=== PATIENT | female | born 1955 | race Caucasian/White ===

== ENCOUNTER 2016-09-19 01:35 | Emergency (ER) | payer OTHER ==
[~2016-09-19] VITALS: Ht 157.5 cm; Wt 54.4 kg
[~2016-09-19 01:35] MED LIST: ASPI81CT89 PO; HUM SUBQ; LANTUS SUBQ; SYN.1 PO
[2016-09-19 01:44] VITALS: BP 116/70
--- NOTE | 2016-09-19 01:55 | NUR ---
TO ER OF1
--- NOTE | 2016-09-19 02:01 | NUR ---
Patient being evaluated by physician.
[2016-09-19] MEDS ORDERED: NACL 0.9% 1,000 ML IV ONE (02:05)
--- NOTE | 2016-09-19 02:08 | NUR ---
MOVED TO ER BED 8
--- NOTE | 2016-09-19 02:10 | NUR ---
PT ARRIVED BACK FROM [place] VIA AIRPLANE TONIGHT C/O BILAT LEG PAIN. BLOOD SUGAR 433 PT DENIES N/V/D; SKIN IS PINK/WARM/DRY; AAOX4 WITH EVEN AND STEADY GAIT; LUNGS CLEAR BL; HR EVEN AND REGULAR; PT DENIES ANY FEVER, CP, SOB, OR COUGH AT THIS TIME; PATIENT STATES PAIN OF 10/10 AT THIS TIME; VSS; PATIENT POSITIONED FOR COMFORT; HOB ELEVATED; BEDRAILS UP X2; BED DOWN. ER MD MADE AWARE OF PT STATUS.
[2016-09-19 02:18] LABS: BASOPHILS # (AUTO) 0.2 K/uL (0.00-0.22); BASOPHILS % (AUTO) 2.3 % (0.0-2.0); EOSINOPHILS # (AUTO) 0.1 K/uL (0-0.4); EOSINOPHILS % (AUTO) 1.6 % (0.0-4.0); HEMATOCRIT 43.8 % (36-48); HEMOGLOBIN 14.2 g/dL (12.0-16.0); LYMPHOCYTES # (AUTO) 1.4 K/uL (2.5-16.5); LYMPHOCYTES % (AUTO) 16.9 % (20.5-51.1); MEAN CORPUSCULAR HEMOGLOBIN 29 pg (27-31); MEAN CORPUSCULAR HGB CONC 33 g/dL (33-37); MEAN CORPUSCULAR VOLUME 88 fL (80-94); MONOCYTES # (AUTO) 0.1 K/uL (0.8-1.0); MONOCYTES % (AUTO) 1.7 % (1.7-9.3); NEUTROPHILS # (AUTO) 6.4 K/uL (1.8-7.7); NEUTROPHILS % (AUTO) 77.5 % (42.2-75.2); PLATELET COUNT (AUTO) 289 K/uL (140-450); RED BLOOD CELL COUNT(AUTO) 4.97 MIL/uL (4.20-5.40); RED CELL DISTRIBUTION WIDTH 12.6 % (11.6-13.7); WHITE BLOOD COUNT (AUTO) 8.2 K/uL (4.8-10.8)
[2016-09-19 02:33] LABS: ALBUMIN 3.7 g/dL (3.4-5.0); ANION GAP 14.7 (8-16); CALCIUM 9.5 mg/dL (8.5-10.1); CREATININE 1.3 mg/dL (0.6-1.3); POTASSIUM 4.7 mmol/L (3.5-5.1); TOTAL BILIRUBIN 0.7 mg/dL (0.0-1.0); TOTAL PROTEIN, SERUM 8.6 g/dL (6.4-8.2)
[2016-09-19 02:35] LABS: PROTHROMBIN TIME 10.5 secs (10.8-13.4)
[2016-09-19] MEDS ORDERED: INSULIN HUMAN REGULAR 100 UNITS/ML 10 ML VIAL IVP ONE (02:45)
[2016-09-19] MEDS ORDERED: DIAZEPAM 5 MG TAB PO ONE (03:10)
[2016-09-19] MEDS ORDERED: HYDROmorphone 1 MG/ML AMP IVP ONE (03:20)
[2016-09-19] MEDS ORDERED: ONDANSETRON 4 MG/2 ML VIAL IVP ONE (05:40)
--- NOTE | 2016-09-19 05:50 | NUR ---
LARGE EMESIS NOTED, ZOFRAN ORDERED AND GIVEN. PT TOLERATED WELL.
--- NOTE | 2016-09-19 05:52 | NUR ---
PT RESTING COMFORTABLY NOW AT THIS TIME, NO DISTRESS NOTED.
[2016-09-19 07:16] VITALS: BP 97/59
--- NOTE | 2016-09-19 07:17 | NUR ---
Patient discharged with v/s stable. Written and verbal after care instructions given and explained. Patient alert, oriented and verbalized understanding of instructions. Ambulatory with steady gait. All questions addressed prior to discharge. ID band removed. Patient advised to follow up with PMD. Rx of Mag Ox given. Patient educated on indication of medication including possible reaction and side effects. Opportunity to ask questions provided and answered.
== END 2016-09-19 07:16 | disposition home or self-care (01) ==
LOC: MED 01:35
DX: R60.0 Localized edema (principal); R25.2 Cramp and spasm; E11.65 Type 2 diabetes mellitus with hyperglycemia; E05.90 Thyrotoxicosis, unspecified without thyrotoxic crisis or storm
CPT/HCPCS: 36415; 80053; 82948; 83735; 85025; 85610; 93970; 96361; 96374; 96375; 99285; J1170; J1815; J2405; J7030